=== PATIENT | male | born 1985 | race Two or more races ===

== ENCOUNTER 2022-11-22 12:27 | Emergency (ER) | payer OTHER ==
[~2022-11-22] VITALS: Ht 160 cm; Wt 60.0 kg
[2022-11-22 13:01] VITALS: BP 131/83
[2022-11-24 09:21] LABS: Hepatitis B Surface Antibody Positive (Negative)
== END 2022-11-22 14:25 | disposition home or self-care (01) ==
LOC: ER 12:27
DX: S61.031A Puncture wound without foreign body of right thumb without damage to nail, initial encounter (principal); Z20.5 Contact with and (suspected) exposure to viral hepatitis; W46.0XXA Contact with hypodermic needle, initial encounter; Y93.89 Activity, other specified; Y92.89 Other specified places as the place of occurrence of the external cause; Y99.8 Other external cause status
CPT/HCPCS: 36415; 86703; 86706; 86803; 87340

== ENCOUNTER 2023-07-09 16:52 | Emergency (ER) | payer OTHER ==
[~2023-07-09] VITALS: Ht 157.5 cm; Wt 58.8 kg
[2023-07-09 18:19] VITALS: BP 133/93; PULSE 75; RESP 20; TEMP 98.3; O2SAT 99
== END 2023-07-09 19:01 | disposition home or self-care (01) ==
LOC: ER 16:52
DX: S40.021A Contusion of right upper arm, initial encounter (principal); Z98.890 Other specified postprocedural states; Y08.89XA Assault by other specified means, initial encounter; Y93.89 Activity, other specified; Y92.89 Other specified places as the place of occurrence of the external cause; Y99.8 Other external cause status
CPT/HCPCS: 73060

== ENCOUNTER → 2023-09-21 | Outpatient (CLI) | payer OTHER | END | disposition home or self-care (01) | LOC: LAB 15:30 | PROVIDERS: ATTEND Nurse Practitioner | DX: Z57.8 Occupational exposure to other risk factors (principal); W46.0XXA Contact with hypodermic needle, initial encounter | CPT/HCPCS: 36415; 86703; 86706; 86803; 87340 ==